=== PATIENT | male | born 1950 | race Caucasian/White ===

== ENCOUNTER → 2017-05-06 | Day surgery (SDC) | payer OTHER ==
[~2017-05-06] MED LIST: DIPRIVAN VIAL 20 ML ONE; NS 1000 ML 1,000 ML ONE; XYLOCAINE 2 % (PLAIN) ONE
--- NOTE | 2017-05-06 12:03 | OR.GENERIC ---
Post-Op Note Generic - Post-Op Note Operative Report: Procedure Note May 06, 2017 Pre-Operative Diagnosis: Screening colonoscopy (family history of colon cancer) . Post-Operative Diagnosis: 1. Sigmoid diverticulosis. 2. Grade I internal hemorrhoids. Procedure: Colonoscopy to cecum. Surgeon: Chau Olsen MD Medical Laboratory Manager: Maxi Rendon CRNA Specimens: None. Estimated blood loss: None. Complications: None. Summary: The patient is a 66 year old male who presented for a screening colonoscopy. The patient reported a family history of colon cancer. The risk and benefits of the procedure including difficulty with anesthesia, bleeding, infection, as well as perforation were discussed with the patient. The patient understood these risks and requested the procedure. On May 06, 2017, the patient was brought to the endoscopy suite. A time out was performed verifying the patient and procedure. The patient was placed in a left lateral decubitus position. After satisfactory induction of monitored anesthesia care, a rectal exam was performed. This was normal. Next , an endoscopy was advanced through the anus and directed to the cecum without difficulty. The scope was then withdrawn viewing all mucosal surfaces. The patients prep was marginal. The cecum, ascending, transverse, as well as descending portions of the colon were normal. Specifically, there were no masses, polyps, or diverticula. The scope was withdrawn through the sigmoid portion of the colon. No masses or polyps were seen. However, a few diverticula were seen. There was no evidence of diverticulitis. The scope was withdrawn into the rectum and retroflexed. Grade I internal hemorrhoids were noted. The scope was straightened and insufflation evacuated. The scope was withdrawn and the procedure terminated. The patient was taken to the recovery room in stable condition. There were no complications.
[2017-05-06 12:14] VITALS: BP 127/80
== END ==
LOC: SURG1 09:13
PROVIDERS: ATTEND Student in an Organized Health Care Education/Training Program
PROC: 0DJD8ZZ Inspection of Lower Intestinal Tract, Via Natural or Artificial Opening Endoscopic (ICD-10-PCS; principal; 2017-05-06 11:45)
DX: Z12.11 Encounter for screening for malignant neoplasm of colon (principal); Z80.0 Family history of malignant neoplasm of digestive organs; K57.30 Diverticulosis of large intestine without perforation or abscess without bleeding; K64.0 First degree hemorrhoids
CPT/HCPCS: A4217; J2001; J3490